=== PATIENT | female | born 1980 | race Caucasian/White ===

== ENCOUNTER → 2017-10-16 08:34 | Outpatient (CLI) | payer OTHER, SELFPAY ==
--- NOTE | 2017-10-16 11:04 | PFTCOMP ---
COMPLETE PULMONARY FUNCTION TEST INTERPRETATION Brief HPI: Patient is a 37 year old female, currently under the care of Dr. June, who presents to [facility] for complete pulmonary function tests secondary to diagnosis of cough. Respiratory therapist reports good effort and reproducible results. Interpretation: Forced expiration spirometry shows a mild large airways obstructive ventilatory defect with an FEV1 of 87% predicted. There is a significant bronchodilator response in FEV1 by ATS criteria. Spirograms are of good quality and plateau slowly, indicating slowly emptying areas of the lungs. The respiratory flow volume loop shows decreased expiratory flow rates at all lung volumes consistent with airway obstruction. Lung volumes by body plethysmography show a normal total lung capacity at 4.38 L, 103% predicted. All other lung volumes are within normal limits. Diffusion capacity by carbon monoxide is normal at 96% predicted. The airway resistance is normal. No previous pulmonary function tests were available for review. Impression: Fully reversible mild large airways obstructive ventilatory defect consistent with the diagnosis of asthma.
== END ==
PROVIDERS: Family Provider Family Medicine; PCP Family Medicine; Visit Provider Family Medicine
DX: J45.909 Unspecified asthma, uncomplicated (principal)
CPT/HCPCS: 94060; 94726; 94729

== ENCOUNTER → 2018-03-13 16:09 | Outpatient (CLI) | payer OTHER, SELFPAY ==
[2018-03-13 17:10] LABS: Potassium 3.8 mmol/L (3.5-5.1)
== END ==
PROVIDERS: Family Provider Family Medicine; PCP Family Medicine; Visit Provider Dermatology
DX: L70.0 Acne vulgaris (principal)
CPT/HCPCS: 36415; 84132

== ENCOUNTER → 2018-11-12 14:31 | Outpatient (CLI) | payer OTHER, SELFPAY ==
[2018-11-12 15:41] LABS: Potassium 4.1 mmol/L (3.5-5.1)
== END ==
PROVIDERS: Family Provider Family Medicine; PCP Family Medicine; Visit Provider Dermatology
DX: L70.0 Acne vulgaris (principal); L57.8 Other skin changes due to chronic exposure to nonionizing radiation; Z80.8 Family history of malignant neoplasm of other organs or systems
CPT/HCPCS: 36415; 84132

== ENCOUNTER → 2020-01-04 17:00 | Outpatient (CLI) | payer OTHER, SELFPAY ==
--- NOTE | 2020-01-04 16:48 | BI_ITS ---
MAMMOGRAPHY - BILATERAL SCREENING 3-D TOMOSYNTHESIS REASON FOR EXAM: Female, 39 years old. Routine screening PERTINENT HISTORY: NO FAM HX -- CURRENT PROGESTERONE X 1 MONTH -- BASELINE EXAM -- NO SX. TECHNIQUE: 2-D mammograms and 3-D Tomosynthesis of the breast (s) were performed. CAD was performed. COMPARISON: None. FINDINGS: The breast composition is composed of scattered fibroglandular density. Scattered benign calcifications are seen. No dense spiculated masses or suspicious microcalcifications are identified. No architectural distortion is identified. There is no skin thickening or retraction. BI/SCREEN MAMM (CAD) W/MAC BILAT IMPRESSION: No mammographic signs of malignancy. Routine yearly mammograms recommended. ASSESSMENT CATEGORY: BIRADS Category 2: Benign. A letter regarding these results will be sent to the patient by the facility within 30 days. FOLLOW UP RECOMMENDATION: Yearly follow up mammogram recommended. (A) Approximately 10% of breast cancers are not detected by mammography. A normal mammogram should not delay biopsy of a clinically suspicious abnormality. Electronically Signed: Eugenio Hernandez MD at 7:58 EDT , Service support ,
== END ==
PROVIDERS: PCP Family Medicine; Referring Provider Obstetrics & Gynecology; Visit Provider Obstetrics & Gynecology
DX: Z12.31 Encounter for screening mammogram for malignant neoplasm of breast (principal)
CPT/HCPCS: 77063; 77067

== ENCOUNTER → 2020-10-31 | Outpatient (CLI) | payer OTHER, SELFPAY ==
[2020-10-31 17:28] LABS: Probe Check PASS; Specimen Processing Control PASS
== END | disposition home or self-care (01) ==
LOC: LABSPEC 15:41
PROVIDERS: PCP Family Medicine; Referring Provider Family Medicine; Visit Provider Family Medicine
DX: Z20.822 Contact with and (suspected) exposure to COVID-19 (principal)
CPT/HCPCS: 87635; U0002

== ENCOUNTER → 2021-06-10 | Outpatient (CLI) | payer OTHER, SELFPAY | END | disposition home or self-care (01) | LOC: LABSPEC 06-11 06:08 | PROVIDERS: PCP Family Medicine; Referring Provider Family Medicine; Visit Provider Family Medicine | DX: U07.1 COVID-19 (principal) | CPT/HCPCS: 87635; U0005; U0003 ==

== ENCOUNTER 2021-08-16 12:11 | Outpatient (CLI) | payer OTHER, SELFPAY ==
--- NOTE | 2021-08-16 12:20 | RAD_ITS ---
EXAM: XR CHEST, 2 VIEWS : 1980 CLINICAL INDICATION: COUGH TECHNIQUE: Frontal and lateral views of the chest. This report was created using [employer] report generation technology. COMPARISON: None. FINDINGS: LUNGS AND PLEURAL SPACES: Unremarkable. No consolidation or edema. No pneumothorax. No effusion. HEART: Unremarkable. Cardiac silhouette not enlarged. MEDIASTINUM: Central airways and mediastinal contour are unremarkable. BONES/JOINTS: Unremarkable. SOFT TISSUES: Unremarkable. RAD/Chest PA and Lateral IMPRESSION: No radiographic evidence of acute cardiopulmonary disease. at 0250 Reported and signed by: Aime Mcpherson MD Electronically Signed: Aime Mcpherson MD at 2:49 EST ,
== END 2021-08-16 23:59 | disposition home or self-care (01) ==
PROVIDERS: PCP Family Medicine; Referring Provider Family Medicine; Visit Provider Family Medicine
DX: R05.9 Cough, unspecified (principal); Z20.822 Contact with and (suspected) exposure to COVID-19
CPT/HCPCS: 71046; 87635; U0003; U0005

== ENCOUNTER → 2021-10-04 | Outpatient (CLI) | payer OTHER, SELFPAY ==
--- NOTE | 2021-10-04 13:33 | BI_ITS ---
MAMMOGRAPHY - BILATERAL SCREENING 3-D TOMOSYNTHESIS REASON FOR EXAM: Female, 41 years old. SCREENING PERTINENT HISTORY: No significant family history. TECHNIQUE: 2-D mammograms and 3-D Tomosynthesis of the breast (s) were performed. CAD was performed. COMPARISON: 01/04/2020 FINDINGS: The breast composition is heterogeneously dense that can obscure small breast masses. Scattered benign calcifications are seen. No dense spiculated masses or suspicious microcalcifications are identified. No architectural distortion is identified. There is no skin thickening or retraction. There has been no significant change since the prior study. BI/SCRN MAMM (CAD)W/MAC BILAT IMPRESSION: No mammographic signs of malignancy. Routine yearly mammograms recommended. ASSESSMENT CATEGORY: BIRADS Category 1: Negative. A letter regarding these results will be sent to the patient by the facility within 30 days. FOLLOW UP RECOMMENDATION: Yearly follow up mammogram recommended. (A) Approximately 10% of breast cancers are not detected by mammography. A normal mammogram should not delay biopsy of a clinically suspicious abnormality. Electronically Signed: Dean Mireles MD at 16:27 EDT ,
== END | disposition home or self-care (01) ==
LOC: OPBI 13:31
PROVIDERS: PCP Family Medicine; Visit Provider Obstetrics & Gynecology
DX: Z12.31 Encounter for screening mammogram for malignant neoplasm of breast (principal)
CPT/HCPCS: 77063; 77067

== ENCOUNTER 2021-10-18 05:57 | Day surgery (SDC) | payer OTHER, SELFPAY ==
[2021-10-16 17:56] LABS: Hematocrit 39.7 % (37-47); Hemoglobin 14.1 g/dL (12.0-15.0); Mean Corp Hgb Conc 35.5 g/dL (32-36); Mean Corpuscular Hgb 31.8 pg (27.0-32.0); Mean Corpuscular Volume 89.6 fL (81-99); Mean Platelet Vol. 9.7 fl (6.2-12.0); Platelet Count 277 K/mm3 (150-450); RBC Distribution Width CV 12.2 % (11.6-14.6); RBC Distribution Width SD 40.1 fl (35.1-43.9); Red Blood Count 4.43 M/mm3 (4.2-5.4); White Blood Count 9.2 K/mm3 (4.4-11.0)
[2021-10-16 18:15] LABS: International Normalized Ratio 0.9; Prothrombin Time (Protime)PT. 12.1 SECONDS (11.7-14.9)
[2021-10-16 18:16] LABS: Partial Thromboplast Time 28.7 Seconds (24.1-36.2)
--- NOTE | 2021-10-17 06:49 | PCM.HP.BLA ---
History and Physical Date of Admission: 10/18/21 Date: 10/16/2021 Name: KAILYN KIRKLAND Age: 41 Date of : 1980 Surgical History and Physical Kailyn Kirkland, a 41 year old female 2 0 0 0 2, presents for Hysteroscopy, Dilation and curettage, Sri ablation on October 18, for history of heavy and prolonged menstrual bleeding with irregular cycle x 6 months. MEDICATIONS HISTORY: Patient is also takin. citalopram 40 mg tablet, One tablet by mouth daily 2. Pulmicort Flexhaler 90 mcg/actuation breath activated, One puff 2 x daily 3. Singulair 10 mg tablet, One tablet by mouth daily 4. spironolactone 100 mg tablet, One tablet 2 x daily 5. phentermine 37.5 mg capsule, One pill by mouth once a day ALLERGIES: NKA Infections - COVID Illnesses - Depression,Osteoarthritis Accidents - no injuries of consequence Hospitalizations - see surgery and Childbirth Review of Systems: GENERAL - Denies fever, or chills SKIN - Denies skin changes EYES - Denies visual changes EARS - Denies difficulty hearing NOSE - Denies nasal congestion or bleeding MOUTH - Denies sore throat or difficulty swallowing NECK - Denies pain or swelling RESPIRATORY - Denies shortness of breath or wheezing CARDIOVASCULAR - Denies palpitations or chest pain GASTROINTESTINAL - Denies nausea, vomiting, diarrhea, constipation GENITOURINARY - Denies dysuria, frequency of urination, incontinence of urine MUSCULOSKELETAL - Denies joint or muscle pain NEUROLOGICAL - Denies localized numbness or weakness PSYCHIATRIC - Denies depression or anxiety ENDOCRINE - Denies heat or cold intolerance, weight loss or gain HEMATO-IMMUNOLOGIC - Denies excesive bleeding with cuts SOCIAL HISTORY: Alcohol Use - RARELY Smoking - used to smoke but quit Diet - no special diet Lifestyle - moderate stress lifestyle and Engaged Exercise - active Seat Belt Use - always Employer - [employer] Job Description - [employer] Illicit Drug Use - denies use of street drugs Sexual Activity - single sexual partner Hours Worked - 40 hours per week Spouse-Sig Other Name - Christian Kirkland Spouse-Sig Other Occupation - [employer] Spouse-Sig Other Phone No - [phone] Children Name(s) - Oscar Control - Tubal FAMILY HISTORY: Mother: DM II. Father: DM II. Maternal Grandmother: DM II and Ovarian cancer. Maternal Grandfather: DM II. Paternal Grandmother: DM II. Paternal Grandfather: Hypertension. MENSTRUAL HISTORY: LMP Known?- Approximate-Month KnownAmount/Duration - 7 days to 2 weeks, Regularity - Regular, Frequency - monthly days, LMP - 09/28/21, Age Onset Menarche - 10 PAST PREGNANCIES: Total Pregnancies - 2; Full Term Pregnancies - 2; Premature - 0; Abortions, Induced - 0; Abortions, Spontaneous - 0; Ectopics - 0; Multiple Births - 0; Living Children - 2 SURGICAL HISTORY: 1. Tubal ; - 2. 2014 (R) Foot Surgery ; - PHYSICAL EXAM BP- 130/76 Sitting, Right arm, regular cuff Temp- 98.76 Taken Orally Weight- 199.53471 lbs Height- 60 inch BMI:[id number] CONSTITUTIONAL - NAD, well nourished, and well developed SKIN - No rash, lesions, or ulcers HEENT - normocephalic, atraumatic, sclerae anicteric LUNGS - normal respiratory rate and rhythm NEUROLOGICAL - normal gait, normal balance, normal motor PSYCHIATRIC - A and O to time, place, person, mood and affect External Genitial Vagina - non-tender without lesions Urethra/Urethral Meatus - non-tender Bladder - non-tender Vagina - vaginal lopez are pink and moist without loss of rugae and no evidence of atropy Cervix - without cervical motion tenderness and has normal size and features without evident lesions Uterus - 5-6 cm in size, mobile and nontender Adnexa - clear without massess or tenderness PAP 11/23/2019 nilm emb [id number] benign secretory endometrium ULTRASOUND 06/27/21 UTERUS: 8.8 x 5.7 x 5.4cm. anterior submucous fibroid seen measures 2.3 x 3.1 x 2.8cm. ENDOMETRIAL ECHO: 10mm. RIGHT OVARY: 4.2 x 2.8 x 1.9cm. complex appearing cyst measures 1.6 x 2 x 2cm. LEFT OVARY: 4 x 4.7 x 3.2cm. simple cyst measures 2.5 x 3 x 3.2cm. BLADDER: No bladder masses visualized. FREE FLUID: NONE. OTHER PERTINENT FINDINGS: submucous fibroid seen, inhomogeneous uterine echotexture and complex right ovarian cyst. simple left ovarian cyst. ASSESSMENT/PLAN: 1. Excessive And Frequent Menstruation With Irregular Cycle Plan for hysteroscopy, D and C, polypectomy as indicated and EM ablation EMB path 05/2021 benign Counseled on procedural r/b/i/a Pt given opportunities to ask questions and questions answered to her satisfaction Preop lab today
[2021-10-18] VITALS (7 sets, daily range): BP systolic 117–136; BP diastolic 74–82; PULSE 76–92; RESP 16; TEMP 36.8–37.1; O2SAT 82–100; BMI 38.5
[2021-10-18] MEDS: Lactated Ringers 1,000 ML 30 ML IV (06:39)
[2021-10-18 06:42] LABS: Internal QC Validated? YES +Cl - CLEAR BKGD; Pregnancy, Urine Negative Negative
--- NOTE | 2021-10-18 07:30 | EMB_PTH ---
PATIENT: MIREYA DE LA GARZA [place] [facility] [place][id number] AGE/SX: 41/F ROOM: RE10/18/[address]: Dr. Chel Forde MD : 1980 BED: DIS: 10/18/2021 SPEC #: [id number] RECD: 10/18/21 10:49 STATUS: DORINDA CHRISTOPHER #: [id number] [place]: 10/18/21 07:[address]: Chel Osorio DEPT: SURGICAL PATHOLOGY RECD BY: Jenny Barbour ENTERED: 10/18/21 11:48 SP TYPE: ENDOM BX/C OT DR: Dr. Santosh Morris MD Tissues: Endometrium, NOS Procedures: Surgery Specimen Level IV HEADER OPERATION: Hysteroscopy, D&C Sri, Possible Symphion PRE-OP DIAGNOSIS: Excessive and frequent Menstruation with Irregular Cycle TISSUE SUBMITTED: Endometrial Curettings MICROSCOPIC DIAGNOSIS Endometrial curettings: Secretory endometrium. SJ:roby 10/19/2021 MICROSCOPIC DESCRIPTION Slides are reviewed. GROSS DESCRIPTION Received in fixative is one container labeled with the patient's name and designated endometrial curettings. The specimen consists of multiple fragments of hemorrhagic soft tissue that in aggregate measure 2 x 1 x 0.2 cm. The specimen is totally submitted in one cassette. / RAH:roby 10/18/2021 TC:4 CPT: 53742
[2021-10-18] MEDS: Lidocaine 1% (20 ml mdv) 20 ML Vial (07:45)
[2021-10-18] MEDS: Lubricating Jelly 60 GM Tube 30 GM (07:45)
--- NOTE | 2021-10-18 08:30 | PCM.DC ---
Discharge Instructions Diet Discharge Diet: No restrictions Activity May resume sexual activity in: - (2-4 weeks) Dressing / Incision Call your doctor if you observe: Fever of 101 or Higher, Using more than 1 pad per hour, Shortness of breath, Chest pain, Calf discomfort and Uncontrolled pain Follow Up Care Please Follow Up With: Chel Forde MD When: 2 to 4 weeks Test Results: Test results from this visit will be discussed in further detail at your follow-up appointment, if applicable. Discharge Plan Admission Primary Reason for Your Visit: Hysteroscopy, dilation and curettage, Endometrial ablation Attending Provider: Chel Osorio Primary Care Provider: Santosh Morris Discharge Orders/Prescriptions Prescriptions: New ibuprofen 800 mg tablet 800 mg PO TID PRN (Reason: pain) Qty: 30 RF: 0 oxycodone 5 mg capsule 5 mg PO Q6H PRN (Reason: pain) 1 Days Qty: 3 RF: 0 Continued citalopram [Celexa] 40 mg Tablet 40 mg PO DAILY RF: 0 spironolactone 100 mg Tablet 100 mg PO BID RF: 0 montelukast [Singulair] 10 mg Tablet 10 mg PO DAILY RF: 0 Referrals / Follow Up: Santosh Morris MD [Primary Care Provider] - Disposition Disposition (needs filled in before D/C Order can be placed): Home, Self Care
--- NOTE | 2021-10-23 07:23 | PCM.OPRPT ---
Problems Associated Problem List Diagnoses (1) Menorrhagia: Report of Operation Date of Procedure: 10/18/21 Pre-Operative Diagnosis: 1. Menorrhagia Post-Operative Diagnosis: 1. Menorrhagia Surgery/Procedure Performed:: 1. Hysteroscopy 2. Dilation and curettage 3. Sri Endometrial ablation Description of Surgical Findings:: Normal uterus Surgeon: Chel Osorio Anesthesiologist: Manuel Pratt Specimen's removed: endometrial curettings Estimated Blood Loss (mL): 5 Description of Procedure: Patient was brought to the operating room and sign in performed. She is placed in the dorsal supine position and induced under MAC. She was repositioned to dorsolithotomy and examination under anesthesia was performed. The perineum was prepped and draped in sterile fashion with straight catheterization of the bladder performed. She is placed into high lithotomy and speculum is placed vaginally. The cervix was grasped at the anterior cervical lip and a paracervical block was placed for total of 20 cc of 1% lidocaine without epinephrine. This uterus was sounded and the cervix subsequently dilated. Hysteroscopy was performed with no evidence of uterine polyp or endometritis. The scope was removed. Sharp curettage was performed. The Sri endometrial ablation was subsequently performed. The ablation system was removed and hysteroscopy again performed showing global ablation of the endometrium. The procedure was complete. The scope was removed. The tenaculum was removed from the cervix and the tenaculum site was hemostatic. The speculum was removed from the vagina. Sponge counts were correct x2. The patient was awakened, transferred to the recovery room complication. Complications None Admit VTE Documentation VTE Present on Admission: No VTE Mechan Device Prophylaxis: None VTE Pharm Prophylaxis ordered?: No Reason prophylaxis not ordered:: Procedure Not Indicated
== END 2021-10-18 09:11 | disposition home or self-care (01) ==
LOC: SDC 05:58 → AC 06:00
PROVIDERS: Anesthesiology; PCP Family Medicine; Referring Provider Obstetrics & Gynecology; Visit Provider Obstetrics & Gynecology
PROC: 0U5B8ZZ Destruction of Endometrium, Via Natural or Artificial Opening Endoscopic (ICD-10-PCS; CPT 58558; principal; 2021-10-18 07:15)
DX: N92.1 Excessive and frequent menstruation with irregular cycle (principal); F32.A Depression, unspecified; F41.9 Anxiety disorder, unspecified; M19.90 Unspecified osteoarthritis, unspecified site; Z79.899 Other long term (current) drug therapy; Z87.891 Personal history of nicotine dependence; Z20.822 Contact with and (suspected) exposure to COVID-19
CPT/HCPCS: 58563; 00952; 36415; 81025; 85027; 85610; 85730; 86850; 86900; 86901; 87426; 88305; J7120; J2405

== ENCOUNTER → 2022-07-23 | Outpatient (CLI) | payer OTHER, SELFPAY ==
[2022-07-23 12:26] LABS: Absolute Lymphocyte Count 2.02 X10^3/uL (0.83-4.51); Absolute Neutrophil Count 4.7 X10^3/uL (2.0-7.7); Basophil# 0.04 X10^3/uL; Basophil% 0.5 % (0-1); Eosinophil# 0.08 X10^3/uL; Eosinophils% 1.1 % (0-5); Hemoglobin 14.5 g/dL (12.0-15.0); Lymphocyte # 2.02 X10^3/ul (0.83-4.51); Mean Corp Hgb Conc 33.7 g/dL (32-36); Mean Corpuscular Hgb 31.8 pg (27.0-32.0); Mean Corpuscular Volume 94.3 fL (81-99); Mean Platelet Vol. 10.2 fl (6.2-12.0); Monocyte# 0.57 X10^3/uL; Monocyte% 7.6 % (0-10); NRBC Flagged by Analyzer 0 % (0-5); Neutrophil # 4.73 X10^3/uL (2.7-7.7); Neutrophil % 63.4 % (47-70); Platelet Count 227 K/mm3 (150-450); RBC Distribution Width CV 12.9 % (11.6-14.6); RBC Distribution Width SD 44.2 fl (35.1-43.9); Red Blood Count 4.56 M/mm3 (4.2-5.4); White Blood Count 7.5 K/mm3 (4.4-11.0)
[2022-07-23 12:47] LABS: ALB/GLOB Ratio 1.2 RATIO (0.9-2.4); AST(SGOT) 18 U/L (15-37); Alanine Aminotransfer ALT/SGPT 41 U/L (13-56); Albumin, Serum 3.8 g/dL (3.2-5.0); Alkaline Phosphatase 84 U/L (45-117); Anion Gap 7 (5-15); BUN 14 mg/dL (7-18); BUN/Creat Ratio 18.8 RATIO (10-20); Calcium,Total 9.1 mg/dL (8.5-10.1); Chloride 106 mmol/L (98-107); Cholesterol 192 mg/dL (200); Creatinine, Serum 0.74 mg/dL (0.55-1.02); EST Glomerular Filtration Rate 90 mL/min (>60); Est Glom Filt Rate - Afr Amer 109 mL/min (>60); Globulin 3.3 g/dL (2.2-4.2); Glucose 123 mg/dL (74-106); High Density Lipoprotein 40 mg/dL; Potassium 4.1 mmol/L (3.5-5.1); Protein, Total 7.1 g/dL (6.4-8.2); Sodium Level 141 mmol/L (136-145); Triglycerides 95 mg/dL; Very Low Density Lipoprotein 19 mg/dL (5-40)
[2022-07-23 13:44] LABS: Microalbumin,Random Urine 7.6 mg/L (NO RANGE EST.); Microalbumin:Creatinine Ratio 4.5 mg/g CRE (<30 mg/g CRE)
[2022-07-23 16:30] LABS: Xtra Tube EP Lab EXTRA TUBE
== END | disposition home or self-care (01) ==
LOC: BFHLAB 08:25
PROVIDERS: PCP Family Medicine; Visit Provider Family Medicine
DX: Z51.81 Encounter for therapeutic drug level monitoring (principal); I10 Essential (primary) hypertension; R73.01 Impaired fasting glucose
CPT/HCPCS: 36415; 80053; 80061; 82043; 82570; 83036; 85025

== ENCOUNTER → 2022-12-10 | Outpatient (CLI) | payer OTHER, SELFPAY ==
--- NOTE | 2022-12-10 16:19 | BI_ITS ---
MAMMOGRAPHY - BILATERAL SCREENING REASON FOR EXAM: Female, 42 years old. Routine annual screening examination. PERTINENT HISTORY: Non-contributory. TECHNIQUE: Digital bilateral breast mac (3D mammographic acquisition) in the CC and MLO projections. 2-D mediolateral oblique (MLO) and craniocaudad (CC) views of both breasts were obtained. CAD: Full Field Digital Mammography with Computer Added Detection was performed. COMPARISON: Comparison is made with prior study dated October 04, 2021 and January 04, 2020. FINDINGS: Breast Composition: The breasts are heterogeneously dense, which may obscure small masses. There are no dominant masses or suspicious calcifications. No other significant abnormalities are identified. There has been no significant change since the prior study. BI/SCRN MAMM (CAD)W/MAC BILAT IMPRESSION: Stable bilateral screening mammogram. Yearly follow-up mammogram recommended. (A) ASSESSMENT CATEGORY: BIRADS Category 1: Negative. A letter regarding these results will be sent to the patient by the facility within 30 days. Approximately 10% of breast cancers are not detected by mammography. A normal mammogram should not delay biopsy of a clinically suspicious abnormality. [id number] Electronically Signed: Efren Castillo MD at 8:35 EDT ,
== END | disposition home or self-care (01) ==
LOC: OPBI 16:18
PROVIDERS: PCP Family Medicine; Referring Provider Family Medicine; Visit Provider Family Medicine
DX: Z12.31 Encounter for screening mammogram for malignant neoplasm of breast (principal)
CPT/HCPCS: 77063; 77067

== ENCOUNTER → 2022-12-24 | Outpatient (CLI) | payer OTHER, SELFPAY ==
--- NOTE | 2022-12-24 07:47 | US_ITS ---
STUDY: ULTRASOUND OF THE FEMALE PELVIS - COMPLETE REASON FOR EXAM: Female, 42 years old. LEIOMYOMA OF UTERUS LMP: Unknown. TECHNIQUE: Transabdominal and Transvaginal TECHNICAL QUALITY: Adequate. COMPARISON: None. FINDINGS: The uterus is anteverted and is in a midline position. The uterus is enlarged and measures 10.1 cm x 6.0 centimeter x 4.1 cm. There is a Nabothian cyst of the cervix. The endometrium measures 4.7 mm in thickness, and is hyperechoic. There is no demonstrated endometrial mass. There is a 1.4 cm x 1.6 cm x 1.5 cm fibroid in the fundal portion of the uterus. I.U.D. - The patient does not have an I.U.D. The right ovary is visualized. The right ovary measures 4.6 cm x 4.5 cm x 3.9 cm. There is a 3.6 cm x 3.8 cm x 3.4 cm cyst. There is no visualized right adnexal mass or complex lesion. There is normal arterial and normal venous vascularity. The left ovary is visualized. The left ovary measures 3.1 cm x 2.9 cm by 2.4 cm. There is a 1.6 cm x 1.7 cm x 2 cm dominant follicle. There is no visualized left adnexal mass or complex lesion. There is normal arterial and normal venous vascularity. There is minimal fluid in the cul-de-sac. US/Transvaginal Non- IMPRESSION: 1.4 cm x 1.5 cm x 1.6 cm fibroid in the fundal portion of the uterus. 3.6 cm x 3.8 cm x 2.4 cm right ovarian cyst. Electronically Signed: Efren Castillo MD at 12:56 EDT ,
[2022-12-24 09:21] LABS: Follicle Stimulating Hormone 5.6 mIU/mL; Glucose 142 mg/dL (74-106)
[2022-12-24 09:38] LABS: Insulin 25.7 mU/L (2.6-37.6); Progesterone Level 0.63 ng/mL (See Comment)
[2022-12-28 14:10] LABS: Sex Hormone-binding Globulin 23.1 nmol/L (24.6-122.0); Testosterone, % Free 3.77 % (0.50-2.80); Testosterone, Free 1.58 ng/dL (0.10-0.85); Testosterone, Total 42 ng/dL (4-50)
== END | disposition home or self-care (01) ==
PROVIDERS: PCP Family Medicine; Referring Provider Obstetrics & Gynecology; Visit Provider Obstetrics & Gynecology
DX: N91.5 Oligomenorrhea, unspecified (principal); D25.9 Leiomyoma of uterus, unspecified
CPT/HCPCS: 36415; 76830; 82627; 82670; 82947; 83001; 83525; 84144; 84270; 84402; 84403; 82626

== ENCOUNTER → 2023-05-29 | Outpatient (CLI) | payer OTHER, SELFPAY ==
[2023-05-29 11:37] LABS: Absolute Lymphocyte Count 1.95 X10^3/uL (0.83-4.51); Absolute Neutrophil Count 3.7 X10^3/uL (2.0-7.7); Basophil# 0.04 X10^3/uL; Basophil% 0.6 % (0-1); Eosinophil# 0.09 X10^3/uL; Eosinophils% 1.4 % (0-5); Hematocrit 41.5 % (37-47); Hemoglobin 14.4 g/dL (12.0-15.0); Lymphocyte # 1.95 X10^3/ul (0.83-4.51); Lymphocyte % 31.4 % (19-41); Mean Corp Hgb Conc 34.7 g/dL (32-36); Mean Corpuscular Hgb 32.1 pg (27.0-32.0); Mean Corpuscular Volume 92.6 fL (81-99); Mean Platelet Vol. 9.5 fl (6.2-12.0); Monocyte# 0.43 X10^3/uL; Monocyte% 6.9 % (0-10); NRBC Flagged by Analyzer 0 % (0-5); Neutrophil # 3.69 X10^3/uL (2.7-7.7); Neutrophil % 59.5 % (47-70); Platelet Count 247 K/mm3 (150-450); RBC Distribution Width SD 41.1 fl (35.1-43.9); Red Blood Count 4.48 M/mm3 (4.2-5.4); White Blood Count 6.2 K/mm3 (4.4-11.0)
[2023-06-02 00:06] LABS: Alternaria tenuis <0.10 kU/L (Class 0); Ash, White <0.10 kU/L (Class 0); Aspergillus fumigatus <0.10 kU/L (Class 0); Aspirgillus flavus Negative (Neg:<1:1); Aspirgillus fumigatus Negative (Neg:<1:1); Aspirgillus niger Negative (Neg:<1:1); Bermuda Grass <0.10 kU/L (Class 0); Birch <0.10 kU/L (Class 0); Black Walnut <0.10 kU/L (Class 0); Cat Hair / Dander,Stand <0.10 kU/L (Class 0); Cedar, Mountain <0.10 kU/L (Class 0); Cladosporium herbarum <0.10 kU/L (Class 0); Cockroach, American <0.10 kU/L (Class 0); Cottonwood <0.10 kU/L (Class 0); Cytoplasmic Ab (C-ANCA) <1:20 titer (Neg:<1:20); D farinae Mite <0.10 kU/L (Class 0); D pteronyssinus <0.10 kU/L (Class 0); Dog Epithelia <0.10 kU/L (Class 0); Elm, American White <0.10 kU/L (Class 0); Immunoglobulin E 21 IU/mL (6-495); Immunoglobulin E 22 IU/mL (6-495); Maple/Box Elder <0.10 kU/L (Class 0); Mouse Urine <0.10 kU/L (Class 0); Mulberry, White <0.10 kU/L (Class 0); Oak, White <0.10 kU/L (Class 0); Pecan <0.10 kU/L (Class 0); Penicillium Notatum <0.10 kU/L (Class 0); Perinuclear Ab (P-ANCA) <1:20 titer (Neg:<1:20); Pigweed, Rough <0.10 kU/L (Class 0); Ragweed, Short/Common <0.10 kU/L (Class 0); Russian Thistle <0.10 kU/L (Class 0); Sheep Sorrel <0.10 kU/L (Class 0); Sycamore, American <0.10 kU/L (Class 0); Timothy Grass <0.10 kU/L (Class 0)
== END | disposition home or self-care (01) ==
LOC: PAVLAB 11:20
PROVIDERS: PCP Family Medicine; Referring Provider Internal Medicine Critical Care Medicine; Visit Provider Internal Medicine Critical Care Medicine
DX: J45.909 Unspecified asthma, uncomplicated (principal)
CPT/HCPCS: 36415; 82785; 85025; 86003; 86256; 86606

== ENCOUNTER → 2023-07-28 | Outpatient (CLI) | payer OTHER, SELFPAY ==
--- OUTSIDE RECORDS SUMMARY | 2023-07-28 13:18 | XMS RPT_ITS | CCD ---
Author Name Unknown Address [address] [place] [address] Organization [facility] Care Team Providers Care Traffic Circuit Engineer Name Role Phone BIJAL VASQUEZ DO Unavailable Unavailable BIJAL VASQUEZ DO Unavailable Unavailable MAURY RO MD Unavailable Unavailable BIJAL VASQUEZ DO Unavailable Unavailable MAURY RO MD Unavailable Unavailable PROVIDER, UNKNOWN Unavailable Unavailable Results Test Name Value Interpretation Reference Range Facil ity Encounters Encounter Date Encounter Type Care Provider Facility Start: 07-27-2017 End: 07-27-2017 Emergency department patient visit BIJAL HEARN [facility] Payers Date Payer Category Payer Policy ID Private Health Insurance [id number] Summary Purpose Family History No Family History Records FoundNo Family History Records Found Advance Directives No Advanced Directives Records FoundNo Advanced Directives Records Found Additional Source Comments INFORMATION SOURCE (unrecogn ized section and content) DATE CREATED AUTHOR AUTHOR'S ORGANIZ ATION 04/29/2020 [facility] [place] FOR RECORDS PERTAINING TO PATIENTS WHO ARE OR HAVE BEEN ENROLLED IN A CHEMICAL DEPENDENCY/SUBSTANCEABUSE PROGRAM, SOME INFORMATION MAY BE OMITTED. This clinical summary was aggregated from multiple sources. Caution should be exercised in using it in the provision of clinical care. This summary normalizes information from multiple sources, and as a consequence, information in this document may materially change the coding, format and clinical context of patient data. In addition, data may be omitted in some cases. CLINICAL DECISIONS SHOULD BE BASED ON THE PRIMARY CLINICAL RECORDS. [facility] [employer] [facility]. provides no warranty or guarantee of the accuracy or completeness of information in this document.
== END | disposition home or self-care (01) ==
PROVIDERS: PCP Family Medicine; Referring Provider Internal Medicine Critical Care Medicine; Visit Provider Internal Medicine Critical Care Medicine
DX: J45.909 Unspecified asthma, uncomplicated (principal)
CPT/HCPCS: 94060; 94726; 94729

== ENCOUNTER → 2024-01-20 | Outpatient (CLI) | payer OTHER, SELFPAY ==
--- NOTE | 2024-01-20 16:37 | BI_ITS ---
MAMMOGRAPHY - BILATERAL SCREENING REASON FOR EXAM: Female, 43 years old. Routine annual screening examination. PERTINENT HISTORY: Non-contributory. TECHNIQUE: Digital bilateral breast mac (3D mammographic acquisition) in the CC and MLO projections. 2-D mediolateral oblique (MLO) and craniocaudad (CC) views of both breasts were obtained. CAD: Full Field Digital Mammography with Computer Added Detection was performed. COMPARISON: Comparison is made with prior study dated December 10, 2022 and October 04, 2021. FINDINGS: Breast Composition: The breasts are heterogeneously dense, which may obscure small masses. There are no dominant masses or suspicious calcifications. No other significant abnormalities are identified. There has been no significant change since the prior study. BI/SCRN MAMM (CAD)W/MAC BILAT IMPRESSION: Stable bilateral screening mammogram. Yearly follow-up mammogram recommended. (A) ASSESSMENT CATEGORY: BIRADS Category 1: Negative. A letter regarding these results will be sent to the patient by the facility within 30 days. Approximately 10% of breast cancers are not detected by mammography. A normal mammogram should not delay biopsy of a clinically suspicious abnormality. [id number] Electronically Signed: Efren Castillo MD at 9:05 EDT ,
== END | disposition home or self-care (01) ==
LOC: OPBI 01-21 07:48
PROVIDERS: PCP Family Medicine; Referring Provider Family Medicine; Visit Provider Family Medicine
DX: Z12.31 Encounter for screening mammogram for malignant neoplasm of breast (principal)
CPT/HCPCS: 77063; 77067

== ENCOUNTER → 2024-05-03 | Outpatient (CLI) | payer OTHER, SELFPAY ==
--- NOTE | 2024-05-03 10:36 | RAD_ITS ---
STUDY: X-RAY - CERVICAL SPINE REASON FOR EXAM: Female, 44 years old. Neck pain and headache TECHNIQUE: view(s) of the cervical spine were obtained. COMPARISON: None FINDINGS: Normal anterior atlantoaxial articulation. Normal odontoid process. Normal cervical lordosis. Normal vertebral bodies and endplates. Mild disc space narrowing at C3-4 and C4-5. Normal visualized intervertebral neuroforamina. The soft tissue structures are unremarkable. RAD/Cerv Spine 4 or 5 Views IMPRESSION: Mild degenerative changes, no acute findings Electronically Signed: Eugenio Hernandez MD at 11:41 EST ,
--- NOTE | 2024-05-03 10:36 | RAD_ITS ---
INDICATION: arthritis, pain EXAMINATION/TECHNIQUE: X-RAY - XR Hips Bilateral with Pelvis when performed; 2 Views COMPARISON: No relevant prior comparison study available FINDINGS: PELVIC BONES: No displaced fracture, destructive or sclerotic lesions. Note that overlapping bowel shadows may however obscure fine detail. Sacroiliac joints are unremarkable. No widening of the pubic symphysis. HIPS: The articular structures are unremarkable. No displaced fracture seen in this frontal view. SOFT TISSUES: No soft tissue swelling or gas. Evidence of previous tubal ligation RAD/Hips B/L min 2 views w/ Pelvis IMPRESSION: No evidence of displaced pelvic or hip fracture. Electronically Signed: Eugenio Hernandez MD at 11:54 EST ,
[2024-05-03 12:54] LABS: Absolute Lymphocyte Count 2.22 X10^3/uL (0.83-4.51); Absolute Neutrophil Count 3.9 X10^3/uL (2.0-7.7); Basophil# 0.04 X10^3/uL; Basophil% 0.6 % (0-1); Eosinophil# 0.09 X10^3/uL; Eosinophils% 1.3 % (0-5); Hematocrit 40.6 % (37-47); Hemoglobin 14.3 g/dL (12.0-15.0); Lymphocyte # 2.22 X10^3/ul (0.83-4.51); Lymphocyte % 33.2 % (19-41); Mean Corp Hgb Conc 35.2 g/dL (32-36); Mean Corpuscular Hgb 31.8 pg (27.0-32.0); Mean Corpuscular Volume 90.4 fL (81-99); Monocyte# 0.46 X10^3/uL; Monocyte% 6.9 % (0-10); NRBC Flagged by Analyzer 0 % (0-5); Neutrophil # 3.86 X10^3/uL (2.7-7.7); Neutrophil % 57.7 % (47-70); Platelet Count 255 K/mm3 (150-450); RBC Distribution Width CV 12.2 % (11.6-14.6); RBC Distribution Width SD 40.5 fl (35.1-43.9); Red Blood Count 4.49 M/mm3 (4.2-5.4); White Blood Count 6.7 K/mm3 (4.4-11.0)
[2024-05-03 12:55] LABS: Vitamin B12 418 pg/mL (211-911); Vitamin D,25 Hydroxy 26.5 ng/mL
[2024-05-03 12:59] LABS: ALB/GLOB Ratio 1.2 RATIO (0.9-2.4); AST(SGOT) 22 U/L (15-37); Alanine Aminotransfer ALT/SGPT 47 U/L (13-56); Albumin, Serum 3.8 g/dL (3.2-5.0); Alkaline Phosphatase 80 U/L (45-117); Anion Gap 7 (5-15); BUN 11 mg/dL (7-18); BUN/Creat Ratio 14.6 RATIO (10-20); Calcium,Total 9.5 mg/dL (8.5-10.1); Chloride 105 mmol/L (98-107); Cholesterol 233 mg/dL (200); Creatinine, Serum 0.76 mg/dL (0.55-1.02); EST Glomerular Filtration Rate 88 mL/min (>60); Est Glom Filt Rate - Afr Amer 106 mL/min (>60); Ferritin 127 ng/mL (8-252); Globulin 3.1 g/dL (2.2-4.2); Glucose 131 mg/dL (74-106); High Density Lipoprotein 38 mg/dL; Iron 114 ug/dL (50-170); Protein, Total 6.9 g/dL (6.4-8.2); Sodium Level 138 mmol/L (136-145); T4 Free Direct 1.02 ng/dL (0.76-1.46); Triglycerides 83 mg/dL; Very Low Density Lipoprotein 17 mg/dL (5-40)
[2024-05-03 16:34] LABS: Hemoglobin A1c 6.2 % (3.8-5.6)
== END | disposition home or self-care (01) ==
PROVIDERS: PCP Family Medicine; Referring Provider Nurse Practitioner Family; Visit Provider Nurse Practitioner Family
DX: Z00.01 Encounter for general adult medical examination with abnormal findings (principal); N95.1 Menopausal and female climacteric states; R53.83 Other fatigue; M25.551 Pain in right hip; M25.552 Pain in left hip; M54.2 Cervicalgia; R73.01 Impaired fasting glucose
CPT/HCPCS: 36415; 72050; 73521; 80053; 80061; 82306; 82533; 82607; 82728; 83036; 83540; 84439; 84443; 85025

== ENCOUNTER 2024-06-25 07:55 | Day surgery (SDC) | payer OTHER, SELFPAY ==
[2024-06-25] VITALS (8 sets, daily range): BP systolic 100–131; BP diastolic 52–82; PULSE 87–107; RESP 16; TEMP 36.3–37.2; O2SAT 95–100; BMI 37.0
--- NOTE | 2024-06-25 08:35 | PCM.PRE.AN2 ---
ASA Classification* ASA Classification ASA Classification: 2 Assessment & Plan Anesthesia* Anesthesia Assessment Anesthesia Assessment: Discussed sedation and/or anesthesia options, risks, benefits, and alternatives with patient/parents/legal guardian/POA. Questions invited. The patient/parents/legal guardian/POA seems to understand and agrees to proceed with anesthesia plan. Reviewed the physical assessment, medical history, allergy history and patient home medications list prior to surgery/procedure/anesthetic and documented any changes. Performed airway and anesthesia risk assessments. Anesthesia Type Anesthesia Type: MAC History Source History Obtained from:: Patient and Chart Anesthesia Focused Assessment* Temperature: 99 F Pulse Rate: 87 Blood Pressure: 131/82 Respiratory Rate: 16 Pulse Ox: 100 Oxygen Delivery Method: Room Air Airway Assessment Mouth opens: 2 cm Mallampati Score: IV Teeth Condition: Chipped/Broken (Patient has a chipped right lower molar. Rest of the teeth are tight.) Neck Range of motion (ROM): Full ROM Focused Labs Anesthesia Preop lab: CBC WBC 6.7 K/mm3 (4.4-11.0) 05/03/24 10:37 RBC 4.49 M/mm3 (4.2-5.4) 05/03/24 10:37 Hgb 14.3 g/dL (12.0-15.0) 05/03/24 10:37 Hct 40.6 % (37-47) 05/03/24 10:37 Plt Count 255 K/mm3 (150-450) 05/03/24 10:37 CHEMISTRY Potassium 4.0 mmol/L (3.5-5.1) 05/03/24 10:37 Sodium 138 mmol/L (136-145) 05/03/24 10:37 BUN 11 mg/dL (7-18) 05/03/24 10:37 Creatinine 0.76 mg/dL (0.55-1.02) 05/03/24 10:37 Glucose 131 mg/dL (74-106) H 05/03/24 10:37 TSH 1.630 uIU/mL (0.358-3.740) 05/03/24 10:37 COAG PT 12.1 SECONDS (11.7-14.9) 10/16/21 17:19 Urine Test Negative Negative 10/18/21 06:20 Pre-Assessment Diagnosis/Proposed Procedure Planned Operative Procedure(s): COLONOSCOPY-OA Anesthesia History 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 When Was Last Pacemaker Check QUESTION #4 FULL TEXT: You/Your Family Experience fever (hyperthermia) with Anesthesia Last Oral Intake Last Oral intake: Last Oral Intake NPO since 07:00 06/25/24 08:12 Meds taken in AM with sips of water? Meds patient instructed to take am of surgery Any additional information?: Yes NPO since: 06:00 (Patient finished prep at 6 AM.) PONV PONV - customer contact sales associate: PONV - customer contact sales associate Female Yes 06/23/24 13:31 HX of Motion Sickness Yes 06/23/24 13:31 HX of N/V After Surgery Yes 06/23/24 13:31 Non-Smoker Yes 06/23/24 13:31 Duration of Surgery greater No 06/23/24 13:31 than 60 minutes Number of Risk Factors 4 06/23/24 13:31 PONV Score Severe Risk 06/23/24 13:31 Height & Weight Height & Weight: Anesthesia: Height & Weight Height 5 ft 06/25/24 08:12 Weight: 86 kg 06/25/24 08:12 Body Mass Index (BMI) 37.0 06/25/24 08:12 Respiratory Assessment Respiratory Assessment - customer contact sales associate: Respiratory Tract Infection Hx - customer contact sales associate Hx Respiratory Tract Infection No 06/23/24 13:31 Any additional information?: Yes Hx Respiratory Tract Infection: Yes (Patient had runny nose about a week ago. It is resolved.) STOP Sleep Apnea STOP Sleep Apnea - customer contact sales associate: STOP Sleep Apnea - customer contact sales associate Hx Hypertension No 06/23/24 13:31 Hx Sleep Apnea No 06/23/24 13:31 CPAP BIPAP Do you snore loudly (louder No 06/23/24 13:31 than talking or can be heard Do you often feel tired/ No 06/23/24 13:31 fatigued/ sleepy during daytime? Has anyone observed you stop No 06/23/24 13:31 breathing during sleep? STOP Results Negative 06/23/24 13:31 QUESTION #5 FULL TEXT : Do you snore loudly (louder than talking or can be heard through closed doors)? Tobacco Use History Tobacco Use History - customer contact sales associate: Tobacco Use History - customer contact sales associate Tobacco Use Smoking Status Former smoker 06/23/24 13:31 Hx Tobacco Use No 06/23/24 13:31 Years Smoking Packs Smoked per Day Smoking Cessation Date was Yes - quit smoking within 15 06/23/24 13:31 within the last 15 years years Hx Smoking Cessation Date 06/16/19 06/23/24 13:31 Hx Smoking Cessation No 06/23/24 13:31 Counseling Hematologic Medial History Hematologic Hx - customer contact sales associate: Hematologic Medical Hx - technical specialist Hx of Blood Transfusion No 06/23/24 13:31 Hx of Transfusion in last 3 No 06/23/24 13:31 Months Date of Last Transfusion (if within last 3 months) Ever experience any problems No 06/23/24 13:31 with transfusion(s)? Specify any problems Hx of Preganancy in last 3 No 06/23/24 13:31 Months Nurse Filling Out Transfusion VCHRISTIN 06/23/24 13:31 & Questions: Date: 06/23/24 06/23/24 13:31 Time: 13:33 06/23/24 13:31 Patient unable to answer at this time (ie. confused, unrespo /Reproduction History /Reproductive History - customer contact sales associate: /Reproductive Hx- customer contact sales associate Hx Now No 06/23/24 13:31 Gestational Age (in weeks): EDC: Hx Hx Para Hx Section SAB No 06/23/24 13:31 PFSH Medical History Wears glasses Cancer Depression Anxiety Alcohol use Heartburn Asthma Former smoker Home Medications ?Medication ?Instructions ?Recorded ?Last Taken ?Type citalopram 40 mg tablet (Celexa) 40 mg PO DAILY 10/11/21 10/17/21 History montelukast 10 mg tablet 10 mg PO DAILY 10/11/21 10/17/21 History (Singulair) albuterol sulfate 90 mcg/actuation 2 puff inhalation Q6H PRN 12/02/21 Unknown Rx aerosol inhaler (Proventil HFA) shortness of breath or wheezing #8.5 grams cholecalciferol (vitamin D3) 50 50 mcg PO QDAY 04/26/24 Unknown History mcg (2,000 unit) capsule multivitamin 1 tab PO QAM 04/26/24 Unknown History spironolactone 100 mg tablet 100 mg PO BID 04/26/24 Unknown History budesonide-formoterol HFA 160 2 puff inhalation BID PRN ASTHMA 06/23/24 Unknown History mcg-4.5 mcg/actuation aerosol inhaler (Symbicort) Allergy/AdvReac Type Severity Reaction Status Date / Time No Known Allergies Allergy Verified 06/25/24 08:11 Family History Mother Asthma Depression Sleep apnea Hypothyroidism Fibromyalgia Colon polyps Other Diabetes Thyroid disorder Surgical History History of hysteroscopy Hx of foot surgery Hx of tubal ligation Social History household members: spouse current occupational status: employed current occupation: Hospice Smoking Status: Former smoker substance use type: does not use Review of Systems (Anesthesia) ROS Narrative System reviewed and no additional complaints, except as documented.
--- NOTE | 2024-06-25 09:21 | H&P.OPEN ---
HPI - General HPI Narrative MIREYA DE LA GARZA, is a 44 F who presents for screening colonoscopy. The patient does not have any abdominal pain or blood in the stool. She has never had a colonoscopy. She has no family history of colon cancer. [facility] Medical History Wears glasses Cancer Depression Anxiety Alcohol use Heartburn Asthma Former smoker Home Medications ?Medication ?Instructions ?Recorded ?Last Taken ?Type citalopram 40 mg tablet (Celexa) 40 mg PO DAILY 10/11/21 10/17/21 History montelukast 10 mg tablet 10 mg PO DAILY 10/11/21 10/17/21 History (Singulair) albuterol sulfate 90 mcg/actuation 2 puff inhalation Q6H PRN 12/02/21 Unknown Rx aerosol inhaler (Proventil HFA) shortness of breath or wheezing #8.5 grams cholecalciferol (vitamin D3) 50 50 mcg PO QDAY 04/26/24 Unknown History mcg (2,000 unit) capsule multivitamin 1 tab PO QAM 04/26/24 Unknown History spironolactone 100 mg tablet 100 mg PO BID 04/26/24 Unknown History budesonide-formoterol HFA 160 2 puff inhalation BID PRN ASTHMA 06/23/24 Unknown History mcg-4.5 mcg/actuation aerosol inhaler (Symbicort) Allergy/AdvReac Type Severity Reaction Status Date / Time No Known Allergies Allergy Verified 06/25/24 08:11 Family History Mother Asthma Depression Sleep apnea Hypothyroidism Fibromyalgia Colon polyps Other Diabetes Thyroid disorder Surgical History History of hysteroscopy Hx of foot surgery Hx of tubal ligation Social History household members: spouse current occupational status: employed current occupation: Hospice Smoking Status: Former smoker substance use type: does not use Past Medical/Surgical History Planned Operation Planned Operative Procedure(s): COLONOSCOPY-OA Previous Hospitalizations/Surgeries HX Hospitalizations: No Any Problems With Anesthesia: Yes (NAUSEA) You/Your Family Experience Fever (Hyperthermia) With Anes: No Cholinesterase deficiency: No Cardiovascular Hx of Irregular Heartbeat and/or Afib: No Hx Heart Attack: No Hx Congestive Heart Failure: No Hx Hypertension: No Hx Pacemaker: No Respiratory Hx Chronic Obstructive Pulmonary Disease (COPD): No Hx Asthma: No Hx Emphysema: No Hx Sleep Apnea: No Hx Respiratory Tract Infection/Cold (presently): Yes (Patient had runny nose about a week ago. It is resolved.) Do You Snore Loudly (louder than talking or can be heard): No Do You Often Feel Tired/ Fatigued/ Sleepy Dring Daytime?: No Has Anyone Observed You Stop Breathing During Sleep?: No Result (for STOP score): Negative Smoking Status: Former smoker Gastrointestinal Hx Ulcer: No Neurological Hx Seizures: No Hx Headaches: No Does patient have nerve stimulator: No Reproduction : No Miscellaneous Recent Exposure to Contagious Disease: No Allergies No Known Allergies Allergy (Verified 06/25/24 08:11) Discharge Is Pt Admitted From a [facility], or a Nursing Home: No After D/C, Where Do you Plan to Go: Return Home Vital Signs Vital Signs Vital Signs: 06/25/24 08:12 06/25/24 08:12 06/25/24 08:43 Temperature 99 F 99 F Temperature Source Temporal Pulse Rate 87 87 Respiratory Rate 16 16 Respiratory Pattern Normal Blood Pressure 131/82 H 131/82 H Blood Pressure Mean 98 Blood Pressure Source Monitor Blood Pressure Position Semi-Fowlers Blood Pressure Location Left Arm Pulse Ox 100 100 Oxygen Delivery Method Room Air Room Air Weight Weight: 189 lb 9.561 oz Body Mass Index (BMI) 37.0 Physical Exam Const alert and oriented x3 HEENT normocephalic Eyes PERRL Resp normal respiratory effort and normal air movement Cardio regular rate and regular rhythm GI soft to palpation, non-tender and non-distended Extremity normal to inspection Assessment & Plan Assessment/Plan (1) Encounter for screening for malignant neoplasm of colon: PLAN: I explained endoscopy in detail to the patient. I explained the risks including but not limited to stroke or heart attack with anesthesia, perforation of the GI tract, bleeding, infection. I explained that any of these could necessitate further emergency surgery. The patient understands and all questions were answered sufficiently. The patient wishes to proceed with procedure. Edilberto Butler MD Pager: [facility] [address] [place] [address], [address] [place] [phone] Office: Surgery Risks - Colonoscopy Risks Include but are not Limited To: Risks include but are not limited to: Bleeding, perforation requiring further surgery, inability to complete colonoscopy requiring barium enema.
--- NOTE | 2024-06-25 09:51 | OP.CCLET_ITS ---
06/25/2024 Kailyn Gamez [address] [place] [address] Re : Colonoscopy procedure for Kailyn Kirkland Dear Dr. Gamez This procedure was performed on Tuesday, June 25, 2024. My impressions and recommendations are as follows: Impressions : - The entire examined colon is normal on direct and retroflexion views. - No specimens collected. Recommendations : - Discharge patient to home. - Resume previous diet. - Continue present medications. - Repeat colonoscopy in 10 years for screening purposes. My findings are described in the full procedure note, which is enclosed. If I can be of further assistance, please feel free to contact me at Doctor phone number(s): , Work: . Sincerely, Edilberto Butler MD 06/25/2024 9:50:53 AM This report has been signed electronically.
--- NOTE | 2024-06-25 09:51 | OP.COLON_ITS ---
Patient Name: Kailyn Kirkland Procedure Date: 06/25/2024 9:26 AM Date of : 1980 Age: 44 Procedure: Colonoscopy Indications: Screening for colorectal malignant neoplasm Providers: Edilberto Butler MD Referring MD: Kailyn Gamez Medicines: Propofol per Anesthesia Patient Profile: This is a 44 year old female. Refer to note in patient chart for documentation of history and physical. Last Colonoscopy: none. The patient's first colonoscopy is today. Complications: No immediate complications. Procedure: Pre-Anesthesia Assessment: - Prior to the procedure, a History and Physical was performed, and patient medications and allergies were reviewed. The patient's tolerance of previous anesthesia was also reviewed. The risks and benefits of the procedure and the sedation options and risks were discussed with the patient. All questions were answered, and informed consent was obtained. Prior Anticoagulants: The patient has taken no anticoagulant or antiplatelet agents. After reviewing the risks and benefits, the patient was deemed in satisfactory condition to undergo the procedure. After I obtained informed consent, the scope was passed under direct vision. Throughout the procedure, the patient's blood pressure, pulse, and oxygen saturations were monitored continuously. The colonoscope was introduced through the anus and advanced to the cecum, identified by appendiceal orifice and ileocecal valve. The colonoscopy was performed without difficulty. The patient tolerated the procedure well. The quality of the bowel preparation was good. The ileocecal valve, appendiceal orifice, and rectum were photographed. Scope In: 9:37:35 AM Scope Withdrawal Time 0 hours 6 minutes 30 seconds Scope Out: 9:48:29 AM Total Procedure Duration Time 0 hours 10 minutes 54 seconds Findings: The entire examined colon appeared normal on direct and retroflexion views. Impression: - The entire examined colon is normal on direct and retroflexion views. - No specimens collected. Recommendation: - Discharge patient to home. - Resume previous diet. - Continue present medications. - Repeat colonoscopy in 10 years for screening purposes. Procedure Code(s): --- Professional --- 01138, Colonoscopy, flexible; diagnostic, including collection of specimen(s) by brushing or washing, when performed (separate procedure) Diagnosis Code(s): --- Professional --- Z12.11, Encounter for screening for malignant neoplasm of colon CPT copyright 2021 [employer]. All rights reserved. The codes documented in this report are preliminary and upon orthopedic coder review may be revised to meet current compliance requirements. Edilberto Butler MD 06/25/2024 9:50:53 AM This report has been signed electronically. Number of Addenda: 0 Note Initiated On: 06/25/2024 9:26 AM
--- NOTE | 2024-06-25 10:01 | PCM.POST.ANE ---
Anesthesia: Postop Eval I Current Vital Signs Temperature: 97.4 F Pulse Rate: 107 Blood Pressure: 116/58 Respiratory Rate: 16 Pulse Ox: 98 Oxygen Delivery Method: Room Air Assessment Airway patent: Yes Spontaneous unlabored respirations: Yes Mental status: Awake and Calm nausea: No Vomiting: No Anesthesia Complication: No Fluid Hydration Crystalloid volume administer (ml): 40 Total IV fluid infused: 40 Progress Note Anesthesia document: Postop Eval 1 completed: Yes
--- NOTE | 2024-06-25 10:11 | PCM.POSTANE2 ---
Anesthesia Postop Eval I Sum Postop Eval Completion status Anesthesia document: Postop Eval 1 completed: Yes Anesthesia Postop Eval I Summary Anesthesia Postop Eval I Summary: Anesthesia Postop Eval I: Assessment Summary Airway patent Yes 06/25/24 10:01 [email or web address] Spontaneous unlabored Yes 06/25/24 10:01 [email or web address] respirations Mental status Awake,Calm 06/25/24 10:01 [email or web address] nausea No 06/25/24 10:01 [email or web address] Vomiting No 06/25/24 10:01 [email or web address] Anesthesia Postop Eval I: Fluid Summary Crystalloid volume administer 40 06/25/24 10:01 [email or web address] (ml) Colloids volume administered ( ml) Blood Product volume administered (ml) Total IV fluid infused 40 06/25/24 10:01 [email or web address] Anesthesia Postop Eval I: Summary Notes Anesthesia Complication No 06/25/24 10:01 [email or web address] Anesthesia Complication Comment: Post-operative progress note Anesthesia: Postop Eval II Evaluation Mental status: Awake Pain Level: 0 nausea: No Vomiting: No
== END 2024-06-25 10:32 | disposition home or self-care (01) ==
LOC: EN 07:56 → AC 07:59
PROVIDERS: PCP Family Medicine; Referring Provider Family Medicine; Visit Provider Surgery
PROC: 0DJD8ZZ Inspection of Lower Intestinal Tract, Via Natural or Artificial Opening Endoscopic (ICD-10-PCS; CPT 45378; principal; 2024-06-25 08:55)
DX: Z12.11 Encounter for screening for malignant neoplasm of colon (principal); Z87.891 Personal history of nicotine dependence; Z83.719 Family history of colon polyps, unspecified
CPT/HCPCS: 45378

== ENCOUNTER → 2025-02-02 | Outpatient (CLI) | payer OTHER, SELFPAY ==
--- NOTE | 2025-02-02 10:33 | BI_ITS ---
EXAM: SCRN MAMM (CAD)W/MAC BILAT DATE: 02/02/2025 CLINICAL HISTORY: F, Age 44 y/o , SCREENING No family history TECHNIQUE: SCRN MAMM (CAD)W/MAC BILAT COMPARISON: Prior exam(s) dated January 20, 2024.. FINDINGS: TISSUE DENSITY: The breasts are extremely dense, which lowers the sensitivity of mammography. Bilateral Breast Mammographic Findings: No significant masses, calcifications or other abnormalities are identified. No suspicious masses, areas of developing architectural distortion, or suspicious calcifications. There has been no significant interval change. BI/SCRN MAMM (CAD)W/MAC BILAT IMPRESSION: Stable examination. OVERALL FINAL ASSESSMENT BI-RADS 1: NEGATIVE. RECOMMENDATION: Routine annual follow-up in 1 Year A letter with findings and recommendations will be mailed to the patient. Reading Location: [id number]
== END | disposition home or self-care (01) ==
LOC: OPBI 10:32
PROVIDERS: PCP Family Medicine; Referring Provider Family Medicine; Visit Provider Family Medicine
DX: Z12.31 Encounter for screening mammogram for malignant neoplasm of breast (principal)
CPT/HCPCS: 77063; 77067

== ENCOUNTER → 2025-04-20 | Outpatient (CLI) | payer OTHER, SELFPAY ==
[2025-04-20 15:21] LABS: Hematocrit 41.4 % (37-47); Hemoglobin 14.7 g/dL (12.0-15.0); Immature Granulocytes Count 0.020 X10^3/uL (0.0-0.0); Mean Corp Hgb Conc 35.5 g/dL (32-36); Mean Corpuscular Volume 87.2 fL (81-99); Mean Platelet Vol. 10.1 fl (6.2-12.0); NRBC Flagged by Analyzer 0 % (0-5); Platelet Count 239 K/mm3 (150-450); RBC Distribution Width CV 12.2 % (11.6-14.6); RBC Distribution Width SD 38.8 fl (35.1-43.9); Red Blood Count 4.75 M/mm3 (4.2-5.4); White Blood Count 6.6 K/mm3 (4.4-11.0)
[2025-04-20 16:26] LABS: AST(SGOT) 30 U/L (<=31); Alanine Aminotransfer ALT/SGPT 50 U/L (<=34); Albumin, Serum 4.4 g/dL (3.5-5.0); Alkaline Phosphatase 96 U/L (35-104); Anion Gap 14 (5-15); BUN 9 mg/dL (4-19); BUN/Creat Ratio 14.1 RATIO (10-20); Calcium,Total 9.5 mg/dL (7.6-11.0); Carbon Dioxide 21.6 mmol/L (21.0-32.0); Chloride 103 mmol/L (98-108); Cholesterol 233 mg/dL (<=200); Free T3 2.8 pg/mL (2.18-3.98); Globulin 2.8 g/dL (2.2-4.2); Glucose 125 mg/dL (70-99); Low Density Lipoprotein Calc. 176 mg/dL; Potassium 3.7 mmol/L (3.3-5.1); Triglycerides 116 mg/dL; Very Low Density Lipoprotein 23 mg/dL (5-40); Vitamin D,25 Hydroxy 19.0 ng/mL (30-100); cholesterol:hdl ratio screen 6.53
== END | disposition home or self-care (01) ==
LOC: MTLAB 12:56
PROVIDERS: PCP Family Medicine; Referring Provider Family Medicine; Visit Provider Family Medicine
DX: Z51.81 Encounter for therapeutic drug level monitoring (principal); E03.9 Hypothyroidism, unspecified; E55.9 Vitamin D deficiency, unspecified; E78.5 Hyperlipidemia, unspecified; R73.03 Prediabetes; R53.83 Other fatigue
CPT/HCPCS: 36415; 80053; 80061; 82306; 83036; 84439; 84443; 84481; 85025